=== PATIENT | male | born 1950 | race African-American/Black ===

== ENCOUNTER 2021-09-12 19:51 | Emergency (ER) | payer MEDICARE, OTHER ==
[~2021-09-12] VITALS: Ht 188 cm; Wt 81.6 kg
--- NOTE | 2021-09-12 20:45 | NUR ---
PT BIB [facility] FOR C/O N/V X 1 DAY. PT A/OX3. TOLERATING R/A WELL WITH NO SOB. AMBULTARY WITH CANE & STEADY GAIT. CONNECTED PT TO POX AND MONITOR.
--- NOTE | 2021-09-12 20:56 | NUR ---
URINE COLLECTED AND SENT TO LAB
[2021-09-12] MEDS ORDERED: IV NS 0.9% 500 ML BAG IV ONE (21:00)
[2021-09-12] MEDS ORDERED: ONDANSETRON HCL/PF 4 MG/2 ML VIAL IVP ONE (21:00)
[2021-09-12] MEDS ORDERED: ONDANSETRON HCL/PF 4 MG/2 ML VIAL ONE (21:01)
--- NOTE | 2021-09-12 21:24 | NUR ---
LFA #20G S/L; PATENT AND INTACT. BLOOD COLLECTED AND SENT TO LAB
[2021-09-12 21:26] LABS: BASOPHILS % (AUTO) 0.5 % (0.0-2.0); EOSINOPHILS % (AUTO) 2.9 % (0.0-6.0); HEMATOCRIT 38 % (39-51); HEMOGLOBIN 12.8 g/dL (13.5-17.5); LYMPHOCYTES # (AUTO) 0.7 K/uL (0.8-4.8); LYMPHOCYTES % (AUTO) 14.1 % (20.0-44.0); MEAN CORPUSCULAR HGB CONC 33 g/dl (31.0-36.0); MEAN CORPUSCULAR VOLUME 97 fL (80-96); MONOCYTES # (AUTO) 0.6 K/uL (0.1-1.30); MONOCYTES % (AUTO) 10.7 % (2.0-12.0); NEUTROPHILS # (AUTO) 3.8 K/uL (1.8-8.9); NEUTROPHILS % (AUTO) 71.8 % (43.0-81.0); PLATELET COUNT (AUTO) 192 K/uL (150-450); RED BLOOD CELL COUNT(AUTO) 3.94 MIL/uL (4.5-6.0); WHITE BLOOD COUNT (AUTO) 5.3 K/uL (4.3-11.0)
[2021-09-12] MEDS ORDERED: GUAIFENESIN/D-METHORPHAN HB 5 ML UDC PO ONE (21:30)
--- NOTE | 2021-09-12 21:34 | NUR ---
COVID ANTIGEN SWAB COLLECTED AND SENT TO LAB
[2021-09-12] MEDS ORDERED: GUAIFENESIN/D-METHORPHAN HB 5 ML UDC ONE (21:38)
[2021-09-12] MEDS ORDERED: IBUPROFEN 400 MG TABLET ONE (21:50)
--- NOTE | 2021-09-12 21:56 | NUR ---
PT C/O OF 8 H/A; ADMIN MOTRIN 800MG ORDERED. WILL REASSESS PAIN IN 30 MINUTES
[2021-09-12] MEDS ORDERED: IBUPROFEN 400 MG TABLET PO ONE (22:00)
[2021-09-12 22:01] LABS: CARBON DIOXIDE 28 mmol/L (21-32); CHLORIDE 101 mmol/L (98-107); CREATININE 1.3 mg/dL (0.6-1.3); GLUCOSE 90 mg/dL (74-106); POTASSIUM 3.3 mmol/L (3.5-5.1); SODIUM SERUM 138 mmol/L (136-145); UREA NITROGEN, BLOOD 12 mg/dL (7-18)
[2021-09-12 22:05] LABS: ALANINE AMINOTRANSFERASE 27 U/L (12-78); ALBUMIN 3.6 g/dL (3.4-5.0); ALKALINE PHOSPHATASE 143 U/L (46-116); ASPARTATE AMINOTRANSFERASE 17 U/L (15-37); BILIRUBIN,DIRECT 0.2 mg/dL (0.0-0.2); BILIRUBIN,TOTAL 0.4 mg/dL (0.2-1.0); LIPASE 72 U/L (73-393); TOTAL PROTEIN, SERUM 8.2 g/dL (6.4-8.2)
[2021-09-12] MEDS ORDERED: ACET-2605 PO (22:24)
[2021-09-12] MEDS ORDERED: GUAI1TBM19 PO (22:24)
[2021-09-12] MEDS ORDERED: BENZ-13 PO (22:24)
[2021-09-12] MEDS ORDERED: ONDA4TAB11 PO (22:24)
--- NOTE | 2021-09-12 23:04 | NUR ---
IV removed. Catheter intact and site benign. Pressure and 4x4 applied to site. No bleeding noted. Patient discharged to [facility] in stable condition. Written and verbal after care instructions given. Patient verbalizes understanding of instruction. PT ambulatory with a steady gait WITH CANE.
[2021-09-12 23:05] VITALS: BP 151/100
== END 2021-09-12 23:08 ==
LOC: ER 19:56
DX: R11.2 Nausea with vomiting, unspecified (principal); B34.9 Viral infection, unspecified; Z20.822 Contact with and (suspected) exposure to COVID-19; I10 Essential (primary) hypertension; R94.31 Abnormal electrocardiogram [ECG] [EKG]
CPT/HCPCS: 36415; 71045; 80048; 80076; 83690; 83880; 84484; 85025; 87426; 93005; 96374; 99285; J2405; J7040; C9803

== ENCOUNTER 2021-10-04 17:54 | Inpatient (IN) | payer MEDICARE, OTHER ==
[~2021-10-04] VITALS: Ht 188 cm; Wt 83.1 kg
[~2021-10-04 17:54] MED LIST: ACET-2605 PO; BENZ-13 PO; GUAI1TBM19 PO; ONDA4TAB11 PO
--- NOTE | 2021-10-04 18:15 | NUR ---
PT CAME TO ER C/O VOMITING BLOOD & DIZZINESS SINCE THIS MORNING. ADMITS DIARRHEA, DENIES BLOOD IN STOOL. DENIES ABDOMINAL PAIN. AAOX4, BREATHING EVEN AND UNLABORED. PULSES 2+ BILATERALLY. ON MONITOR. PT GIVEN BEDSIDE URINAL TO USE. WILL CONTINUE TO MONITOR.
[2021-10-04] MEDS ORDERED: ONDANSETRON HCL/PF 4 MG/2 ML VIAL IVP ONE (18:30)
[2021-10-04] MEDS ORDERED: PANTOPRAZOLE 40 MG VIAL IV ONE (18:30)
[2021-10-04] MEDS ORDERED: IV NS 0.9% 1,000 ML BAG IV ONE (18:30)
--- NOTE | 2021-10-04 18:33 | NUR ---
URINE SAMPLE OBTAINED AND SENT TO LAB
--- NOTE | 2021-10-04 18:43 | NUR ---
LAB AT BEDSIDE
[2021-10-04] MEDS ORDERED: PANTOPRAZOLE 40 MG VIAL ONE ×2 (18:47→21:41)
[2021-10-04] MEDS ORDERED: ONDANSETRON HCL/PF 4 MG/2 ML VIAL ONE (18:47)
[2021-10-04 19:56] LABS: BASOPHILS % (AUTO) 0.3 % (0.0-2.0); HEMATOCRIT 29 % (39-51); LYMPHOCYTES # (AUTO) 1.4 K/uL (0.8-4.8); LYMPHOCYTES % (AUTO) 23.3 % (20.0-44.0); MEAN CORPUSCULAR HGB CONC 34 g/dl (31.0-36.0); MEAN CORPUSCULAR VOLUME 100 fL (80-96); MONOCYTES # (AUTO) 0.4 K/uL (0.1-1.30); MONOCYTES % (AUTO) 7.3 % (2.0-12.0); NEUTROPHILS % (AUTO) 68.1 % (43.0-81.0); PLATELET COUNT (AUTO) 241 K/uL (150-450); RED BLOOD CELL COUNT(AUTO) 2.92 MIL/uL (4.5-6.0); WHITE BLOOD COUNT (AUTO) 5.8 K/uL (4.3-11.0)
--- NOTE | 2021-10-04 19:57 | NUR ---
STOOL SAMPLE DONE AND SENT TO LAB.
--- NOTE | 2021-10-04 20:19 | NUR ---
COVID SAMPLE OBTAINED AND SENT TO LAB
[2021-10-04 20:43] LABS: OCCULT BLOOD STOOL POSITIVE (NEGATIVE)
[2021-10-04 20:45] LABS: CALCIUM, SERUM 8.6 mg/dL (8.5-10.1); CREATININE 1.4 mg/dL (0.6-1.3); POTASSIUM 3.5 mmol/L (3.5-5.1)
[2021-10-04 20:50] LABS: BILIRUBIN,DIRECT 0.1 mg/dL (0.0-0.2); BILIRUBIN,TOTAL 0.3 mg/dL (0.2-1.0)
[2021-10-04] MEDS ORDERED: MAGNESIUM HYDROXIDE 30 ML UDC PO PRN (21:00)
[2021-10-04] MEDS ORDERED: ONDANSETRON HCL/PF 4 MG/2 ML VIAL IVP PRN (21:00)
[2021-10-04] MEDS ORDERED: MAG HYDROX/AL HYDROX/SIMETH 30 ML UDC PO PRN (21:00)
[2021-10-04] MEDS: PANTOPRAZOLE 40 MG VIAL IV SCH (21:00)
[2021-10-04] MEDS ORDERED: LORAZEPAM INJ 2 MG/ML VIAL IV PRN (21:00)
[2021-10-04] MEDS ORDERED: Z GUARD REMEDY 4 OZ OINT TP PRN (21:00)
--- NOTE | 2021-10-04 21:00 | NUR ---
LAB AT BEDSIDE
--- NOTE | 2021-10-04 21:46 | NUR ---
PROTONIX IV WAS GIVEN 2 HRS AGO. DID NOT ADMINISTER AGAIN.
--- NOTE | 2021-10-04 22:15 | NUR ---
RECIEVED BED 314-2
--- NOTE | 2021-10-04 22:15 | NUR ---
BED 314-2
--- NOTE | 2021-10-04 22:24 | NUR ---
REPORT GIVEN TO CIRA ARMENDARIZ
--- NOTE | 2021-10-04 22:57 | NUR ---
PT TRANSFERRED TO FLOOR FOLLOWING [employer]S PROTOCOL. PT REMAINED STABLE THROUGHOUT TRANSFER.
[2021-10-04 23:00] VITALS: BP 146/94
[2021-10-05] VITALS: BP 149/93
--- NOTE | 2021-10-05 00:40 | NUR ---
RN MS ADMITTING NOTE Patient arrived to unit at 2300 accompanied by ER staff. Is A&Ox4. Initial VS 146/94, HR 96, RR 17, Temp 98.0, O2 sat 100%. Full Code. Says he isn't currently dizzy and hasn't vomited blood since this morning. Full liquids but will be NPO after lunch tomorrow for EGD. R hand #20G flushed and patent. Patient has deformed R ankle from previous injury, states that it healed wrong and now wears a wrap/brace. No other skin issues. Bowel sounds normoactive x4, lung sounds clear, heart rhythm regular but rate slightly fast 96. Denies any symptoms at this time and is agreeable to procedure -EGD. Will continue to monitor.
[2021-10-05 04:00] VITALS: BP 137/74
--- NOTE | 2021-10-05 06:07 | NUR ---
RN CLOSING NOTES Patient stable overnight. No further vomiting or diarrhea. Denies dizziness at this time. Tolerating full liquid diet well. Resting in bed comfortably watching TV at this time. No signs of distress. Patient aware of plan of care. A&Ox4. Safety measures in place.
[2021-10-05 06:40] LABS: BASOPHILS % (AUTO) 0.4 % (0.0-2.0); EOSINOPHILS % (AUTO) 2.6 % (0.0-6.0); HEMATOCRIT 28 % (39-51); HEMOGLOBIN 9.6 g/dL (13.5-17.5); LYMPHOCYTES # (AUTO) 2.3 K/uL (0.8-4.8); LYMPHOCYTES % (AUTO) 38.4 % (20.0-44.0); MEAN CORPUSCULAR HGB CONC 35 g/dl (31.0-36.0); MEAN CORPUSCULAR VOLUME 97 fL (80-96); MONOCYTES # (AUTO) 0.6 K/uL (0.1-1.30); MONOCYTES % (AUTO) 9.8 % (2.0-12.0); NEUTROPHILS # (AUTO) 2.9 K/uL (1.8-8.9); NEUTROPHILS % (AUTO) 48.8 % (43.0-81.0); PLATELET COUNT (AUTO) 216 K/uL (150-450); RED BLOOD CELL COUNT(AUTO) 2.86 MIL/uL (4.5-6.0); WHITE BLOOD COUNT (AUTO) 5.9 K/uL (4.3-11.0)
[2021-10-05 07:13] LABS: CALCIUM, SERUM 8.9 mg/dL (8.5-10.1); CREATININE 1.3 mg/dL (0.6-1.3); MAGNESIUM 1.9 mg/dL (1.8-2.4); PHOSPHORUS 3.6 mg/dL (2.5-4.9); POTASSIUM 3.6 mmol/L (3.5-5.1)
[2021-10-05 07:39] LABS: THYROID STIMULATING HORMONE 1.209 uIU/mL (0.358-3.74)
--- NOTE | 2021-10-05 07:57 | NUR ---
MS RN OPENING NOTES RECEIVED PATIENT IN BED, AWAKE, A/O X4. PATIENT ON ROOM AIR; BREATHING EVEN AND UNLABORED. NO COMPLAINS OF PAIN OR DIZZINESS AT THIS TIME. IV ACCESS ON R HAND G #20 PRESENT AND INTACT. SAFETY PRECAUTIONS IN PLACE; BED IN LOW POSITION AND LOCKED, RAILS UP X2, CALL LIGHT WITHIN REACH. WILL CONTINUE TO MONITOR PATIENT.
[2021-10-05 08:00] VITALS: BP 130/79
[2021-10-05] MEDS: FOLIC ACID 1 MG TABLET PO SCH (08:53)
[2021-10-05] MEDS: PANTOPRAZOLE 40 MG VIAL IV SCH ×2 (08:54→21:49)
[2021-10-05] MEDS ORDERED: CLON0.1T PO (09:18)
[2021-10-05] MEDS ORDERED: TRAZ-257 PO (09:18)
[2021-10-05] MEDS ORDERED: HYDR100T27 PO (09:18)
[2021-10-05] MEDS ORDERED: LISI20TA30 PO (09:18)
[2021-10-05] MEDS ORDERED: ACET-2605 PO (09:18)
[2021-10-05] MEDS ORDERED: FURO-144 PO (09:18)
[2021-10-05] MEDS ORDERED: IBUP-1955 PO (09:18)
--- NOTE | 2021-10-05 12:00 | NUR ---
MS RN NOTES TALKED TO PATIENT REGARDING VACCINATION STATUS. PER PATIENT HE IS NOT VACCINATED FOR FLU AND COVID AND HE DOES NOT WANT TO BE VACCINATED.
[2021-10-05 16:00] VITALS: BP 130/89
--- NOTE | 2021-10-05 19:00 | NUR ---
RN opening notes Received Pt from morning nurse. Pt is sitting at the bed comfortably watching TV. Pt is alert and orientedX4. On room air. No SOB. No S/S of distress noted. VS is stable. Awaiting for EGD. NPO status. IV site at R hand# 20 is clean, intact and SL. Safety precautions is maintained. Bed at low position, brakes locked, side rails upX2, hob elevated and call light is within reach. Will continue to monitor.
--- NOTE | 2021-10-05 19:17 | NUR ---
MS RN CLOSING NOTES PATIENT REMAINS IN BED, AWAKE, A/O X4. PATIENT ON ROOM AIR; BREATHING EVEN AND UNLABORED. NO COMPLAINS OF PAIN OR DIZZINESS DURING SHIFT. IV ACCESS ON R HAND G #20 PRESENT AND INTACT. ALL NEEDS ATTENDED DURING THE DAY. SAFETY PRECAUTIONS IN PLACE; BED IN LOW POSITION AND LOCKED, RAILS UP X2, CALL LIGHT WITHIN REACH. WILL ENDORSE TO BANK APPRAISER NURSE FOR DANYELLE.
--- NOTE | 2021-10-05 19:21 | NUR ---
RN notes Two ER nurses at the bedside. Pt is going for EGD procedure. VS is stable. NPO. Consent is signed.
[2021-10-05] MEDS ORDERED: SUCCINYLCHOLINE CHLORIDE 20 MG/ML VIAL ONE (19:24)
[2021-10-05] MEDS ORDERED: FAMOTIDINE/PF INJ 20 MG/2 ML VIAL IV ONE (19:25)
[2021-10-05] MEDS ORDERED: ANESTHESIA TRAY IN PYXIS 1 EA TRAY MC ONE (20:33)
--- NOTE | 2021-10-05 21:02 | NUR ---
RN notes Pt arrived at the unit with two RN's. Mylene RN at the bedside given report. VS is stable. No S/S of distress noted. Pt denies pain at this time. Pt vomiting twice. Received order from Dr. Farr. Safety precautions is maintained. Will continue to monitor.
[2021-10-05 21:17] VITALS: BP 112/68
--- NOTE | 2021-10-06 | NUR ---
RN notes Pt is resting in bed comfortably. No S/S of distress noted. No nausea or vomiting. Will continue to monitor.
[2021-10-06] MEDS: MORPHINE SULFATE INJ 2 MG/ML DISP.SYRIN IV PRN (04:24)
--- NOTE | 2021-10-06 04:29 | NUR ---
RN notes Pt is complaining of generalized pain 10/10 on pain scale and requesting pain meds. Administered morphine 2 mg/iv push/prn as ordered for pain. Safety precautions is maintained. Will continue to monitor.
--- NOTE | 2021-10-06 06:30 | NUR ---
RN closing notes Pt is resting in bed comfortably. Pt is alert and orientedX4. On room air. No SOB. No S/S of distress noted. VS is stable. routine meds were given as ordered. IV site at R forearm# 22 is clean, intact and SL. Kept Pt clean, dry and cofmortable. Safety precautions is maintained. Bed at low position, brakes locked, side rails upX2, hob elevated and call light is within reach. Will endorse to am nurse for DANYELLE.
[2021-10-06 07:28] LABS: HEMATOCRIT 23 % (39-51); HEMOGLOBIN 7.9 g/dL (13.5-17.5); MEAN CORPUSCULAR HGB CONC 34 g/dl (31.0-36.0); MEAN CORPUSCULAR VOLUME 98 fL (80-96); PLATELET COUNT (AUTO) 170 K/uL (150-450); RED BLOOD CELL COUNT(AUTO) 2.39 MIL/uL (4.5-6.0)
--- NOTE | 2021-10-06 07:30 | NUR ---
RN OPENING notes received Patient in bed comfortably. Pt is alert and orientedX4. On room air. No SOB. No S/S of distress noted. VS is stable. IV site at R forearm# 22 is clean, intact and SL. Kept Pt clean, dry and cofmortable. Safety precautions is maintained. Bed at low position and locked, side rails upX2, call light and table is within reach. Will continue to monitor.
[2021-10-06 07:50] LABS: CALCIUM, SERUM 8.4 mg/dL (8.5-10.1); CREATININE 2.6 mg/dL (0.6-1.3); MAGNESIUM 1.4 mg/dL (1.8-2.4); PHOSPHORUS 1.9 mg/dL (2.5-4.9); POTASSIUM 3.4 mmol/L (3.5-5.1)
[2021-10-06] MEDS: FOLIC ACID 1 MG TABLET PO SCH (08:38)
[2021-10-06] MEDS: PANTOPRAZOLE 40 MG VIAL IV SCH ×2 (08:41→20:24)
[2021-10-06 11:12] LABS: BAND % (MANUAL) 4 % (0.0-5.0); LYMPHOCYTES % (MANUAL) 4 % (16-48); MONOCYTES % (MANUAL) 6 % (0-11.0); NEUTROPHILS % (MANUAL) 86 (42-76)
[2021-10-06 12:33] LABS: BASOPHILS % (AUTO) 0.1 % (0.0-2.0); HEMATOCRIT 25 % (39-51); HEMOGLOBIN 8.2 g/dL (13.5-17.5); LYMPHOCYTES # (AUTO) 1.2 K/uL (0.8-4.8); LYMPHOCYTES % (AUTO) 4.6 % (20.0-44.0); MEAN CORPUSCULAR HGB CONC 34 g/dl (31.0-36.0); MEAN CORPUSCULAR VOLUME 96 fL (80-96); MONOCYTES # (AUTO) 1.5 K/uL (0.1-1.30); MONOCYTES % (AUTO) 6.1 % (2.0-12.0); NEUTROPHILS # (AUTO) 22.3 K/uL (1.8-8.9); NEUTROPHILS % (AUTO) 89.2 % (43.0-81.0); PLATELET COUNT (AUTO) 196 K/uL (150-450); RED BLOOD CELL COUNT(AUTO) 2.55 MIL/uL (4.5-6.0)
[2021-10-06] MEDS ORDERED: K PHOS NEUTRAL 250 MG TABLET PO ONE (15:30)
[2021-10-06 15:52] LABS: BAND % (MANUAL) 26 % (0.0-5.0); LYMPHOCYTES % (MANUAL) 3 % (16-48); METAMYELOCYTES % 1 % (0-0); MONOCYTES % (MANUAL) 5 % (0-11.0); MYELOCYTES % 1 % (0-0); NEUTROPHILS % (MANUAL) 64 (42-76)
[2021-10-06 16:00] VITALS: BP 122/63
[2021-10-06] MEDS: ACETAMINOPHEN 325 MG TABLET PO PRN (16:19)
[2021-10-06] MEDS: Magnesium 1GM/D5W 100ML PREMIX 100 ML IV SCH ×2 (17:05→18:56)
[2021-10-06] MEDS ORDERED: IV NS 0.9% 1,000 ML IV ONE (18:30)
--- NOTE | 2021-10-06 19:30 | NUR ---
RN closing notes Patient resting in bed comfortably. Pt is alert and orientedX4. On room air. No SOB. No S/S of distress noted. VS is stable. IV site at R forearm# 22 is clean, intact and SL.All due meds given as ordered. Kept Pt clean, dry and cofmortable. Safety precautions is maintained. Bed at low position and locked, side rails upX2, call light and table is within reach. Will endorse for suresh.
[2021-10-06 20:00] VITALS: BP 105/62
--- NOTE | 2021-10-06 21:02 | NUR ---
received in bed alert and orientated X4 verbalizing his needs smiling and joking denies nausea at this time
[2021-10-06 21:04] LABS: BILIRUBIN,URINE MODERATE (NEGATIVE); COLOR,URINE DARK YELLOW (YELLOW); LEUKOCYTE ESTERASE ,URINE TRACE (NEGATIVE); NITRITE, URINE NEGATIVE (NEGATIVE); PH,URINE 5.5 (5.0-8.0); PROTEIN,URINE TRACE mg/dl (NEGATIVE); UGLUCOSE NEGATIVE (NEGATIVE)
[2021-10-06 21:08] LABS: CREATININE, URINE 378.6 MG/DL (30.0-125.0)
[2021-10-06 21:15] LABS: BACTERIA,URINE 1+ /HPF (None Seen); HYALINE CASTS, URINE 0-2 /LPF (None Seen); RBC,URINE 0-2 /HPF (0-2); SQUAMOUS EPITHELIAL CELL,UR Few /HPF (None Seen); WBC,URINE 21-50 /HPF (0-3)
[2021-10-07] MEDS: MORPHINE SULFATE INJ 2 MG/ML DISP.SYRIN IV PRN ×2 (02:24→17:40)
--- NOTE | 2021-10-07 05:02 | NUR ---
CLOSING NOTES: ALERT AND ORIENTATED X4 COOPERATIVE AND FRIENDLY MEDICATED X1 WITH MORPHINE 2 MG IV AT 0230 AND EFFECTIVE FOR GENERALIZED DISCOMFORT USING THE URINAL EATING AND DRINKING A SNACK 100% THIS EVENING NO EMESIS OR NAUSES THIS 12 HOURS
[2021-10-07 06:21] LABS: BASOPHILS % (AUTO) 0.1 % (0.0-2.0); EOSINOPHILS % (AUTO) 0.8 % (0.0-6.0); HEMATOCRIT 22 % (39-51); HEMOGLOBIN 7.4 g/dL (13.5-17.5); LYMPHOCYTES # (AUTO) 1.6 K/uL (0.8-4.8); LYMPHOCYTES % (AUTO) 10.7 % (20.0-44.0); MEAN CORPUSCULAR HGB CONC 34 g/dl (31.0-36.0); MEAN CORPUSCULAR VOLUME 101 fL (80-96); MONOCYTES % (AUTO) 6.5 % (2.0-12.0); NEUTROPHILS # (AUTO) 12.2 K/uL (1.8-8.9); NEUTROPHILS % (AUTO) 81.9 % (43.0-81.0); PLATELET COUNT (AUTO) 159 K/uL (150-450); RED BLOOD CELL COUNT(AUTO) 2.13 MIL/uL (4.5-6.0); WHITE BLOOD COUNT (AUTO) 14.9 K/uL (4.3-11.0)
[2021-10-07 06:39] LABS: CALCIUM, SERUM 7.9 mg/dL (8.5-10.1); CREATININE 1.9 mg/dL (0.6-1.3); PHOSPHORUS 2.5 mg/dL (2.5-4.9); POTASSIUM 3.2 mmol/L (3.5-5.1)
--- NOTE | 2021-10-07 07:30 | NUR ---
MS RN OPENING NOTES RECEIVED PATIENT IN BED, AWAKE, A/O X3-4. PATIENT ON ROOM AIR; BREATHING EVEN AND UNLABORED. NO COMPLAINTS OF PAIN OR DIZZINESS AT THIS TIME, NO EPISODE OF BLOOD IN THE STOOL. IV ACCESS ON R HAND G #20 PRESENT AND INTACT. SAFETY PRECAUTIONS IN PLACE; BED IN LOW POSITION AND LOCKED, RAILS UP X2, CALL LIGHT WITHIN REACH. WILL CONTINUE TO MONITOR PATIENT ACCORDINGLY.
[2021-10-07 08:00] VITALS: BP 140/80
[2021-10-07] MEDS: PANTOPRAZOLE 40 MG VIAL IV SCH (08:25)
[2021-10-07] MEDS: FOLIC ACID 1 MG TABLET PO SCH (08:25)
[2021-10-07] MEDS: ACETAMINOPHEN 325 MG TABLET PO PRN (08:32)
[2021-10-07] MEDS ORDERED: POTASSIUM CHLORIDE 10 MEQ TABLET.SA PO ONE (09:30)
[2021-10-07] MEDS: CEFTRIAXONE 1 G in IV D5W 50 ML IV SCH (11:08)
[2021-10-07] MEDS: SUCRALFATE 1 G TABLET PO SCH ×3 (11:57→21:10)
[2021-10-07] MEDS: SOD FERRIC GLUC 125 MG in IV NS 0.9% 100 ML IV SCH (13:58)
--- NOTE | 2021-10-07 14:58 | NUR ---
RN NOTES IV ACCESS NOTED TO BE INFILTRATED, STARTED A NEW LINE ON PATIENT'S LEFT WRIST #20, PATENT AND FLUSHES WELL.
[2021-10-07] MEDS: Potassium Chloride 20 MEQ in IV NS 0.9% 1,000 ML IV PRN (15:34)
--- NOTE | 2021-10-07 18:53 | NUR ---
MS RN CLOSING NOTES PATIENT IN BED, AWAKE, A/O X3-4. PATIENT ON ROOM AIR; BREATHING EVEN AND UNLABORED. NO COMPLAINTS OF PAIN OR DIZZINESS AT THIS TIME, NO EPISODE OF BLOOD IN THE STOOL. IV ACCESS ON L WRIST G #20 PRESENT AND INTACT. SAFETY PRECAUTIONS IN PLACE; BED IN LOW POSITION AND LOCKED, RAILS UP X2, CALL LIGHT WITHIN REACH. ALL NEEDS ATTENDED AND MET. DUE MEDS GIVEN ORDERED. WILL ENDORSE TO ONCOMING SHIFT FOR DANYELLE.
[2021-10-07] MEDS ORDERED: IV LR 1000 ML 1,000 ML IV ONE (19:00)
--- NOTE | 2021-10-07 19:31 | NUR ---
MS RN OPENING NOTE PATIENT RECEIVED AWAKE IN BED. A/OX4. NO S/S OF DISTRESS, BREATHING SYMMETRICAL ON ROOM AIR. LW #20 INTACT AND PATENT. SAFETY MEASURES IN PLACE: BED AT LOWEST POSITION, RAILS UP X2, CALL [place] WITHIN REACH. WILL CONTINUE TO FOLLOW PATIENT.
[2021-10-07 20:03] VITALS: BP 143/97
[2021-10-07] MEDS: PANTOPRAZOLE 40 MG TABLET.DR PO SCH (21:10)
[2021-10-08] MEDS: Potassium Chloride 20 MEQ in IV NS 0.9% 1,000 ML IV PRN (02:27)
[2021-10-08] MEDS: MORPHINE SULFATE INJ 2 MG/ML DISP.SYRIN IV PRN ×2 (02:27→12:45)
--- NOTE | 2021-10-08 06:36 | NUR ---
MS RN CLOSING NOTE PATIENT AWAKE IN BED. A/OX4. NO S/S OF DISTRESS, BREATHING SYMMETRICAL ON ROOM AIR. LW #20 INTACT AND PATENT, RUNNING W/ NS+KCL 100ML/HR. SAFETY MEASURES IN PLACE: BED AT LOWEST POSITION, RAILS UP X2, CALL [place] WITHIN REACH. WILL ENDORSE TO FOLLOWING SHIFT FOR DANYELLE.
[2021-10-08 06:49] LABS: CALCIUM, SERUM 8.4 mg/dL (8.5-10.1); CREATININE 1.1 mg/dL (0.6-1.3); POTASSIUM 3.7 mmol/L (3.5-5.1)
--- NOTE | 2021-10-08 07:00 | NUR ---
MS RN OPENING NOTES PATIENT AWAKE IN BED. A/OX4. NO S/S OF DISTRESS, BREATHING SYMMETRICAL ON ROOM AIR. LW #20 INTACT AND PATENT, RUNNING W/ NS+KCL 100ML/HR. SAFETY MEASURES IN PLACE: BED AT LOWEST POSITION, RAILS UP X2, CALL [place] WITHIN REACH. WILL CONTINUE TO MONITOR.
[2021-10-08 07:17] LABS: BASOPHILS % (AUTO) 0.1 % (0.0-2.0); EOSINOPHILS % (AUTO) 1.7 % (0.0-6.0); HEMATOCRIT 23 % (39-51); HEMOGLOBIN 7.7 g/dL (13.5-17.5); LYMPHOCYTES # (AUTO) 1.3 K/uL (0.8-4.8); LYMPHOCYTES % (AUTO) 13.7 % (20.0-44.0); MEAN CORPUSCULAR HGB CONC 34 g/dl (31.0-36.0); MEAN CORPUSCULAR VOLUME 101 fL (80-96); MONOCYTES # (AUTO) 0.7 K/uL (0.1-1.30); MONOCYTES % (AUTO) 8.1 % (2.0-12.0); NEUTROPHILS % (AUTO) 76.4 % (43.0-81.0); PLATELET COUNT (AUTO) 170 K/uL (150-450); RED BLOOD CELL COUNT(AUTO) 2.25 MIL/uL (4.5-6.0); WHITE BLOOD COUNT (AUTO) 9.2 K/uL (4.3-11.0)
[2021-10-08] MEDS: SUCRALFATE 1 G TABLET PO SCH ×3 (07:42→16:34)
[2021-10-08 08:57] VITALS: BP 155/98
[2021-10-08] MEDS: PANTOPRAZOLE 40 MG TABLET.DR PO SCH (09:36)
[2021-10-08] MEDS: FOLIC ACID 1 MG TABLET PO SCH (09:36)
[2021-10-08] MEDS: CEFTRIAXONE 1 G in IV D5W 50 ML IV SCH (11:12)
--- NOTE | 2021-10-08 12:49 | NUR ---
MS RN NOTES PATIENT COMPLAINT OF 8/10 HEADACHE AND REQUESTING PAIN MEDICATIONS. PRN MORPHINE 1 ML IVP ADMINISTERED ORDERED, WILL CONTINUE TO MONITOR FOR S/S OF PAIN.
[2021-10-08] MEDS ORDERED: SUCR1TAB31 PO (13:57)
[2021-10-08] MEDS ORDERED: FERR325T23 PO (13:57)
[2021-10-08] MEDS ORDERED: PANT40TA49 PO (13:57)
[2021-10-08] MEDS ORDERED: LEVO250T59 PO (13:57)
--- NOTE | 2021-10-08 14:04 | NUR ---
MS RN NOTES PATIENT REFUSED DISCHARGE PHOTOS OF HIS RIGHT FOOT AND ANKLE. PATIENT STATED "IM OK".
[2021-10-08] MEDS: SOD FERRIC GLUC 125 MG in IV NS 0.9% 100 ML IV SCH (14:17)
[2021-10-08 16:40] VITALS: BP 141/76
--- NOTE | 2021-10-08 18:53 | NUR ---
MS RN CLOSING NOTES PT TO BE DISCHARGED HOME TONIGHT IN STABLE CONDITION. PT A/O X4, ABLE TO MAKE NEEDS KNOWN. V/S TAKEN, STABLE AND RECORDED. DRESSING ON LEFT KNEE INTACT, DRY AND CLEAN WRAPPED WITH ALISON BANDAGE. ALL BELONGINGS ACCOUNTED FOR AND PT SIGNED BELONGINGS LIST FORM. HEALTH TEACHINGS/DISCHARGED INSTRUCTIONS GIVEN TO PT AND VERBALIZED UNDERSTANDING. MD AND CHARGE NURSE AWARE OF UPCOMING DISCHARGE.
--- NOTE | 2021-10-08 19:35 | NUR ---
Patient discharged in stable condition at 193. IV removed. All paperwork signed. Belongings and medication collected and brought with patient. Wheeled down and picked up via car by Friend "Anil". Assisted patient into car. Addendum: 10/08/21 at 1939 by XIOMARA NOBLE RN Friend is driving pt. to independent living/boarding care where patient is currently living.
== END 2021-10-08 19:32 | disposition home or self-care (01) | DRG 368 ==
LOC: ER 17:59 → TRANSITION 21:13 → TELE 22:48 → MED 10-05 07:54
PROVIDERS: ADMIT Nurse Practitioner Acute Care; ATTEND Internal Medicine
PROC: 0DB68ZX Excision of Stomach, Via Natural or Artificial Opening Endoscopic, Diagnostic (ICD-10-PCS; principal; 2021-10-05)
DX: K20.91 Esophagitis, unspecified with bleeding (principal); N17.0 Acute kidney failure with tubular necrosis; K29.71 Gastritis, unspecified, with bleeding; N39.0 Urinary tract infection, site not specified; D53.9 Nutritional anemia, unspecified; I10 Essential (primary) hypertension; E87.6 Hypokalemia; K52.9 Noninfective gastroenteritis and colitis, unspecified; E83.42 Hypomagnesemia; E83.39 Other disorders of phosphorus metabolism; E86.0 Dehydration; Z20.822 Contact with and (suspected) exposure to COVID-19
CPT/HCPCS: 36415; 71045-TC; 76770-TC; 80048-TC; 80076-TC; 81001; 82272-TC; 82570-TC; 83690-TC; 83735-TC; 84100-TC; 84300-TC; 84443-TC; 85025-TC; 86850-TC; 87081-TC; 87086-TC; 88305-TC; 88313-TC; 88342; C9113; C9803; G0378; J0330; J0696; J2060; J2270; J2405; J2704; J2765; J2916; J3475; J3480; J3490; J7030; J7050; J7060